=== PATIENT | male | born 1960 | race Caucasian/White ===

== ENCOUNTER → 2020-10-03 10:07 | Outpatient (CLI) | payer OTHER, SELFPAY ==
--- NOTE | 2020-10-03 10:14 | RAD_ITS ---
STUDY: X-RAY CHEST REASON FOR EXAM: Male, 60 years old. PAIN TECHNIQUE: PA and lateral views of the chest. COMPARISON: None. FINDINGS: Scattered calcified granulomas. There is thickening of the lateral pleural space in the right hemithorax. This may represent changes secondary to prior trauma. Normal size heart. Normal mediastinum and luan. Normal visualized pulmonary arteries. There is atherosclerotic calcification of the aortic arch with tortuosity. There are diffuse degenerative changes of the visualized thoracic spine. Normal visualized ribs, clavicles, and shoulders. There is no demonstrated abnormality of the visualized soft tissue structures of the upper abdomen. RAD/Chest PA and Lateral IMPRESSION: Scattered calcified granulomas. Thickening of the pleural space along the lateral wall of the right hemithorax. Electronically Signed: Iain Alvarado MD at 14:56 EDT , Service support ,
[2020-10-03 12:10] LABS: Erythrocyte Sedimentation Rate 14 mm/hr (0-20)
[2020-10-03 12:11] LABS: Absolute Lymphocyte Count 1.92 X10^3/uL (0.83-4.51); Absolute Neutrophil Count 5.2 X10^3/uL (2.0-7.7); Basophil# 0.06 X10^3/uL; Basophil% 0.7 % (0-1); Eosinophil# 0.09 X10^3/uL; Eosinophils% 1.1 % (0-5); Hematocrit 46.1 % (40-54); Hemoglobin 15.4 g/dL (13.0-16.5); Lymphocyte # 1.92 X10^3/ul (4.0); Lymphocyte % 23.7 % (19-41); Mean Corp Hgb Conc 33.4 g/dL (32-36); Mean Corpuscular Hgb 30.7 pg (27.0-32.0); Mean Corpuscular Volume 91.8 fL (80-94); Monocyte# 0.73 X10^3/uL; NRBC Flagged by Analyzer 0 % (0-5); Neutrophil % 64.3 % (47-70); Platelet Count 245 K/mm3 (150-450); RBC Distribution Width CV 13.1 % (11.6-14.6); RBC Distribution Width SD 43.8 fl (35.1-43.9); Red Blood Count 5.02 M/mm3 (4.6-6.2); White Blood Count 8.1 K/mm3 (4.4-11.0)
[2020-10-03 12:29] LABS: ALB/GLOB Ratio 1.1 RATIO (0.9-2.4); AST(SGOT) 11 U/L (15-37); Alanine Aminotransfer ALT/SGPT 23 U/L (16-61); Alkaline Phosphatase 62 U/L (45-117); Anion Gap 6 (5-15); BUN 22 mg/dL (7-18); BUN/Creat Ratio 23.9 RATIO (10-20); CRP < 2.90 mg/L (0.0-3.0); Calcium,Total 9.4 mg/dL (8.5-10.1); Chloride 101 mmol/L (98-107); Creatinine, Serum 0.92 mg/dL (0.70-1.30); EST Glomerular Filtration Rate 89 mL/min (>60); Est Glom Filt Rate - Afr Amer 108 mL/min (>60); Globulin 3.7 g/dL (2.2-4.2); Glucose 116 mg/dL (74-106); Potassium 4.3 mmol/L (3.5-5.1); Protein, Total 7.7 g/dL (6.4-8.2); Rheumatoid Factor < 10.0 IU/mL (<15); Sodium Level 138 mmol/L (136-145)
[2020-10-03 12:55] LABS: Hepatitis B Surface Antibody Non-Reactive; Hepatitis B Surface Antigen Non-Reactive (Nonreactive); Hepatitis C Antibody Non-Reactive (Nonreactive)
[2020-10-04 17:13] LABS: ANTINUCLEAR ANTIBODIES DIRECT Negative (Negative)
[2020-10-07 20:07] LABS: QNTFERON TB Mitogen Value > 10.00 IU/mL (.); QNTFERON TB Nil Value 0.04 IU/mL (.); QNTFERON TB1+ Ag Value 0.04 IU/mL (.); QNTFERON TB2+ Ag Value 0.07 IU/mL (.)
[2020-10-08 12:29] LABS: CCP IgG Antibodies 4 units (0-19); QNTIFERON TB Positive Criteria Negative (Negative)
== END ==
LOC: MTLAB 10:12
PROVIDERS: PCP Internal Medicine; Referring Provider Internal Medicine Rheumatology; Visit Provider Internal Medicine Rheumatology
DX: L40.59 Other psoriatic arthropathy (principal); L40.8 Other psoriasis; M19.041 Primary osteoarthritis, right hand; M17.0 Bilateral primary osteoarthritis of knee; I10 Essential (primary) hypertension; E11.9 Type 2 diabetes mellitus without complications
CPT/HCPCS: 36415; 71046; 80053; 85025; 85652; 86038; 86140; 86200; 86431; 86480; 86706; 86803; 87340